=== PATIENT | female | born 1965 | race Two or more races ===

== ENCOUNTER 2019-03-03 03:22 | Emergency (ER) | payer SELFPAY ==
[~2019-03-03] VITALS: Ht 167.6 cm; Wt 81.6 kg
[~2019-03-03 03:22] MED LIST: ASPI-231 PO; DORZ1SOL2 OP; DORZ2SOL18 OP; INSLANTI SC; METF-370; METF-370 PO; PREDSUS OP; SIMV40TA96 PO; [UNRECOGNIZED DRUG - CODE] OP
[2019-03-03 07:21] LABS: Basophils # (auto) 0.1 uL; Basophils % (auto) 1.1 % (0.0-2.0); Eosinophils # (auto) 0.1 uL; Eosinophils % (auto) 2.3 % (0.0-7.0); Hematocrit 32.8 % (36.0-46.0); Hemoglobin 10.8 g/dL (12.2-16.2); Lymphocytes # (auto) 1.2 uL; Lymphocytes % (auto) 20.1 % (10.0-50.0); Mean Corpuscular Hemoglobin 30.5 pg (28.0-32.0); Mean Corpuscular Hgb Conc. 33.1 g/dL (32.0-36.0); Mean Corpuscular Volume 92.3 fL (80.0-100.0); Monocytes # (auto) 0.8 uL; Monocytes % (auto) 12.8 % (0.0-12.0); Neutrophils # (auto) 3.9 uL; Neutrophils % (auto) 63.7 % (37.0-80.0); Platelet Count (auto) 198 10^3/uL (140-450); Red Blood Cells 3.55 10^6/uL (4.0-5.20); Red Cell Distribution Width 14.9 % (11.8-14.3); White Blood Cell 6.2 10^3/uL (4.4-10.8)
[2019-03-03 07:38] LABS: Albumin 2.9 g/dL (3.4-5.0); BUN/Creatinine Ratio 9.6; Calcium 8.3 mg/dL (8.5-10.1); Potassium 4.5 mmol/L (3.5-5.1)
[2019-03-03 07:41] LABS: Bilirubin, Total 0.5 mg/dL (0.2-1.0); Total Protein 6.7 g/dL (6.4-8.2)
[2019-03-03 07:45] LABS: INR 1.01 (0.9-1.15); Partial Thromboplastin Time 26.8 sec (23.64-32.05)
[2019-03-03 10:04] VITALS: BP 158/73
== END 2019-03-03 11:41 | disposition home or self-care (01) ==
LOC: EDBD 03:22 → ER 03:29
DX: I12.0 Hypertensive chronic kidney disease with stage 5 chronic kidney disease or end stage renal disease (principal); E11.22 Type 2 diabetes mellitus with diabetic chronic kidney disease; N18.6 End stage renal disease; E78.5 Hyperlipidemia, unspecified; E46 Unspecified protein-calorie malnutrition; Z99.2 Dependence on renal dialysis; Z90.49 Acquired absence of other specified parts of digestive tract
CPT/HCPCS: 36415; 71045; 80053; 85025; 85610; 85730

== ENCOUNTER 2019-05-20 08:16 | Inpatient (IN) | payer MEDICAID ==
[~2019-05-20] VITALS: Ht 170.2 cm; Wt 66.5 kg
[2019-05-20 09:07] LABS: Basophils # (auto) 0 uL; Basophils % (auto) 0.6 % (0.0-2.0); Eosinophils # (auto) 0 uL; Eosinophils % (auto) 0.3 % (0.0-7.0); Hematocrit 34.6 % (36.0-46.0); Hemoglobin 11.3 g/dL (12.2-16.2); Lymphocytes # (auto) 0.5 uL; Lymphocytes % (auto) 9.2 % (10.0-50.0); Mean Corpuscular Hemoglobin 31.3 pg (28.0-32.0); Mean Corpuscular Hgb Conc. 32.8 g/dL (32.0-36.0); Mean Corpuscular Volume 95.4 fL (80.0-100.0); Monocytes # (auto) 0.2 uL; Neutrophils # (auto) 4.2 uL; Neutrophils % (auto) 84.9 % (37.0-80.0); Platelet Count (auto) 194 10^3/uL (140-450); Red Blood Cells 3.63 10^6/uL (4.0-5.20); Red Cell Distribution Width 14.4 % (11.8-14.3); White Blood Cell 4.9 10^3/uL (4.4-10.8)
[2019-05-20 09:37] LABS: Anion Gap 11 (5-15); Blood Urea Nitrogen 32 mg/dL (7-18); Carbon Dioxide 25 mmol/L (21-32); Chloride 101 mmol/L (98-107); Glucose 155 mg/dL (74-106); Potassium 5.2 mmol/L (3.5-5.1); Sodium 137 mmol/L (136-145)
[2019-05-20 09:38] LABS: Alanine Aminotransferase 32 U/L (13-56); Albumin 3.2 g/dL (3.4-5.0); Aspartate Aminotransferase 28 U/L (15-37); BUN/Creatinine Ratio 6.6; GFR African American 12 mL/min; GFR Non-African American 10 mL/min; Magnesium 2.8 mg/dL (1.6-2.6)
[2019-05-20 09:43] LABS: Alkaline Phosphatase 218 U/L (45-117); Bilirubin, Total 0.5 mg/dL (0.2-1.0); Total Protein 7.4 g/dL (6.4-8.2)
[2019-05-20] MEDS ORDERED: ALBUTEROL SULF 2.5 MG/0.5ML(0.5%) NEB SOLN NEB STA (11:39)
[2019-05-20] MEDS ORDERED: InsuLIN REG 1unit/0.01ml Soln (100units/ml) IV ONE (11:45)
[2019-05-20] MEDS ORDERED: DEXTROSE (50%) 50ML SYRG IV ONE (11:45)
[2019-05-20] MEDS ORDERED: CALCIUM GLUC 4.65meq/50ml D5AE 50 ML IV ONE (11:45)
[2019-05-20] MEDS ORDERED: SODIUM BICARBONATE 8.4% INJ 50ML SYRINGE IV ONE (11:45)
[2019-05-20] MEDS ORDERED: SODIUM ZIRCONIUM CYCL 10 GM PAK PO ONE (11:45)
[2019-05-20 11:50] LABS: Urine Bacteria FEW /hpf (None Seen); Urine Blood 1+ /uL (Negative); Urine Hyaline Cast FEW /lpf (0 - 2); Urine Mucus FEW (None Seen); Urine Specific Gravity 1.034 (1.001-1.035); Urine WBC 13 /hpf (0 - 5)
[2019-05-20] MEDS ORDERED: MORPHINE SULF INJ 2 MG/ML SYRINGE 1ML IV PRN ×2 (12:30)
[2019-05-20] MEDS ORDERED: NITROGLYCERIN 0.4 MG SL TAB SL PRN (12:30)
[2019-05-20] MEDS ORDERED: ONDANSETRON HCL 4 MG/2 ML VIAL IV PRN (12:30)
[2019-05-20] MEDS ORDERED: ACETAMINOPHEN 500 MG TAB PO PRN (12:30)
[2019-05-20] MEDS ORDERED: HYDROcodone-ACET 5/325MG TAB PO PRN (12:30)
[2019-05-20] MEDS ORDERED: DEXTROSE (50%) 50ML SYRG IV PRN (12:45)
[2019-05-20] MEDS ORDERED: FAMOTIDINE 20 MG TAB PO ONE (13:15)
[2019-05-20] MEDS ORDERED: CARVEDILOL 3.125 MG TAB PO ONE (13:15)
[2019-05-20] MEDS ORDERED: BENAZEPRIL HCL 10 MG TAB PO ONE (13:15)
[2019-05-20] MEDS ORDERED: ASPirin-EC 81 mg tab PO ONE (13:15)
--- NOTE | 2019-05-20 14:30 | NUR ---
Telemetry admit from ER: LAURA XIAO admitted to Telemetry unit after SBAR received. Patient oriented to KELLY ART, RN primary RN, unit, room, bed, and unit policies regarding patient care and visiting hours. Patient is mexican speaking only, and was A&O x2 on admission, patient will need frequent reorientation. Patient now on continuous telemetry monitoring, tele box # 34 and telemetry reading on arrival to unit is SR 75bpm. Patient placed on bedside oxygen, weighed by bedscale and encouraged to call if they need something.
--- NOTE | 2019-05-20 15:15 | NUR ---
Family provided history for patient. Patient is Bahraini speaking only.
[2019-05-20 15:59] VITALS: BP 155/77
--- NOTE | 2019-05-20 16:04 | NUR ---
Attempted to place patient in gown, and perform skin assessment. Patient denied changing and denied full skin assessment at this time.
[2019-05-20 17:00] VITALS: BP 142/68
[2019-05-20] MEDS: ACCU-CHEK COMFORT CURVE STRIP VI SCH ×2 (17:00→21:55)
--- NOTE | 2019-05-20 17:24 | NUR ---
Dr. Hylton called for an update on patient. States patient was discharged from [place] yesterday. Stated he will call back tomorrow for another update.
--- NOTE | 2019-05-20 18:03 | NUR ---
Asked pt if she would like to ambulate, so this nurse could assess gait. Patient denied at this time.
[2019-05-20] MEDS: InsuLIN REG 1unit/0.01ml Soln (100units/ml) SC SCH ×2 (18:24→22:13)
--- NOTE | 2019-05-20 19:52 | NUR ---
MRSA swab collected and sent
--- NOTE | 2019-05-20 19:53 | NUR ---
Care endorsed to [facility] nurse Luanne. Patient is laying in bed, no S/S of distress or pain at this time.
--- NOTE | 2019-05-20 19:55 | NUR ---
Opening Shift Note Assumed care of patient, awake and alert, oriented x 3, reoriented to time. Patient on oxygen at 4L via NC with even and unlabored respirations, no S/S of distress or SOB. IV to right AC intact and patent. AV fistula to left upper arm. Patient is able to turn independently in bed. Bed low locked position with side rails up x and call light within reach, bed alarm on. Instructed on POC and to call for assist PRN, will continue to monitor for changes Q1hr and PRN.
[2019-05-20 20:00] VITALS: BP 144/70
[2019-05-20] MEDS: CARVEDILOL 3.125 MG TAB PO SCH (21:55)
[2019-05-20] MEDS: ZOCOR PO SCH (21:55)
[2019-05-20 22:00] VITALS: BP 144/70
[2019-05-21 05:00] VITALS: BP 152/76
--- NOTE | 2019-05-21 06:00 | NUR ---
Received call from Dialysis nurse will be coming in for dialysis in the A.M.
[2019-05-21] MEDS: ACCU-CHEK COMFORT CURVE STRIP VI SCH ×4 (06:42→21:42)
[2019-05-21] MEDS: InsuLIN REG 1unit/0.01ml Soln (100units/ml) SC SCH ×4 (06:43→21:42)
--- NOTE | 2019-05-21 07:00 | NUR ---
Closing Note patient resting in bed with oxygen on at 4L via NC, even and unlabored respirations, no s/s of distress. Bed low locked position with side rails up x 2 and call light within reach, bed alarm on. Endorsed care to day shift RN.
[2019-05-21 07:03] LABS: Basophils # (auto) 0.1 uL; Basophils % (auto) 1.3 % (0.0-2.0); Eosinophils # (auto) 0.1 uL; Eosinophils % (auto) 2.6 % (0.0-7.0); Hematocrit 32.1 % (36.0-46.0); Hemoglobin 10.6 g/dL (12.2-16.2); Lymphocytes # (auto) 1.1 uL; Lymphocytes % (auto) 23.4 % (10.0-50.0); Mean Corpuscular Hemoglobin 31.6 pg (28.0-32.0); Mean Corpuscular Hgb Conc. 32.9 g/dL (32.0-36.0); Monocytes # (auto) 0.6 uL; Monocytes % (auto) 13.1 % (0.0-12.0); Neutrophils # (auto) 2.8 uL; Neutrophils % (auto) 59.6 % (37.0-80.0); Nucleated Red Blood Cells % 0.1 %; Platelet Count (auto) 187 10^3/uL (140-450); Red Blood Cells 3.35 10^6/uL (4.0-5.20); Red Cell Distribution Width 14.2 % (11.8-14.3); White Blood Cell 4.8 10^3/uL (4.4-10.8)
[2019-05-21 07:14] LABS: Calcium 8.1 mg/dL (8.5-10.1); Potassium 5.1 mmol/L (3.5-5.1)
[2019-05-21 07:15] LABS: BUN/Creatinine Ratio 6.8
--- NOTE | 2019-05-21 07:55 | NUR ---
Opening Note Assumed pt care from [facility] nurse. PT is a/ox4 with no s/s of distress or SOB. Pt is currently laying in bed with no complaints. Discussed POC with pt and the possibility of dialysis today; pt verbalized understanding. Pt instructed to call if she needs any assistance due to her vision impairment; pt verbalized understanding. Safety measures maintained with call light within reach, bed in lowest position and side rails up. Will continue to monitor for changes q1hr and prn.
--- NOTE | 2019-05-21 08:10 | NUR ---
Dialysis Nurse Called Will be into see pt between [id number]. Informed pt of dialysis treatment. Will continue to monitor.
[2019-05-21 09:00] VITALS: BP 157/71
[2019-05-21] MEDS: CARVEDILOL 3.125 MG TAB PO SCH ×3 (09:48→21:42)
[2019-05-21] MEDS: ASPirin-EC 81 mg tab PO SCH (09:53)
[2019-05-21] MEDS ORDERED: BENAZEPRIL HCL 10 MG TAB PO SCH (10:00)
[2019-05-21] MEDS ORDERED: FAMOTIDINE 20 MG TAB PO SCH (10:00)
--- NOTE | 2019-05-21 10:31 | NUR ---
Pt C/O of Chest Pain Pt called via call light and reported chest pain to another nurse. Assessed pt; limited understanding of pain due to language barrier but pt pointed to pain located in her stomach area. Assessed pt; she stated that her pain is a 6/10. An EKG was done which showed a normal EKG. After performing the EKG, encouraging deep breaths and sitting the pt up, pt stated that her pain is about a 4/10. Encouraged deep breaths. Will continue to monitor. Addendum: 05/21/19 at 1101 by CELSA ART RN RN Pt states that she is no longer in any pain. Will continue to assess and monitor.
--- NOTE | 2019-05-21 10:39 | NUR ---
Spoke to Dr Mckeon D/C the pt's lotensin due to pt's poor kidney function. Discussed need to place martinez catheter in pt due to minimal urine output. Will implement and continue to monitor.
[2019-05-21] MEDS ORDERED: FUROSEMIDE 40 MG/4 ML VIAL IV ONE (10:45)
--- NOTE | 2019-05-21 11:01 | NUR ---
Dialysis Nurse at Bedside
[2019-05-21] MEDS ORDERED: SODIUM CHL 0.9% 1000 ML BAG XX ONE (11:15)
[2019-05-21 13:00] VITALS: BP 181/81
--- NOTE | 2019-05-21 14:18 | NUR ---
Elevated BP Post Dialysis BP of 181/81 with a HR of 71. Provided pt with daily BP medications. Will continue to monitor. Dialysis nurse reported 2.5L taken off after treatment. Addendum: 05/21/19 at 1510 by CELSA ART RN RN Rechecked BP Now 160/72 with a HR of 76. Pt is still asymptomatic with no complaints. Will continue to monitor and recheck in 1 HR. Addendum: 05/21/19 at 1751 by CELSA ART RN RN Current BP is 166/80 Will continue to monitor.
[2019-05-21 17:00] VITALS: BP 166/80
--- NOTE | 2019-05-21 18:05 | NUR ---
Elevated BP Continues Post Dialysis Latest BP is 166/80. Jaleel Hospitalist. Cynthia buchanan back, orders for PRN Labetalol Q4 10mg SBP>160. Will implement orders. Addendum: 05/21/19 at 1848 by CELSA ART RN RN Reassess BP 161/72 HR of 71. Will continue to monitor and pass to JALIL bean
[2019-05-21] MEDS ORDERED: LABETALOL HCL 5 MG/ML ML 20ML VIAL IV PRN (18:15)
--- NOTE | 2019-05-21 19:40 | NUR ---
Opening Shift Note Assumed care of patient, awake and alert. No S/S of distress/SOB or pain. Instructed on POC and to call for assist PRN. Bed in lowest locked position, call light within reach, side rails up x2, fall precautions in place. Will continue to monitor for changes Q1hr and PRN.
[2019-05-21] MEDS: ZOCOR PO SCH (21:41)
[2019-05-21 22:00] VITALS: BP 160/70
[2019-05-22 05:00] VITALS: BP 160/78
[2019-05-22] MEDS: ACCU-CHEK COMFORT CURVE STRIP VI SCH ×3 (06:42→17:01)
[2019-05-22] MEDS: InsuLIN REG 1unit/0.01ml Soln (100units/ml) SC SCH ×3 (06:42→17:02)
[2019-05-22 06:49] LABS: BUN/Creatinine Ratio 5.7; Potassium 4.7 mmol/L (3.5-5.1)
[2019-05-22] MEDS: ASPirin-EC 81 mg tab PO SCH (08:42)
[2019-05-22] MEDS: CARVEDILOL 3.125 MG TAB PO SCH (08:43)
[2019-05-22 08:46] VITALS: BP 161/72
[2019-05-22] MEDS ORDERED: NIFEdipine ER 30 MG TAB PO SCH (10:00)
[2019-05-22] MEDS ORDERED: NIFE30TA76 PO (10:26)
[2019-05-22 13:00] VITALS: BP 160/71
--- NOTE | 2019-05-22 14:39 | NUR ---
D/C Planning Per consult for oxygen 3 l/min. Contacted [facility] Ph:) Fax:) faxed medical records requesting for oxygen to be deliver to bedside. Per Ok from [facility] referral has been received and portable oxygen will be deliver to bedside between 13:00-15:00 and concentrate oxygen will be deliver to Pt home. Advised MD Dr. Mckeon. Informed NICK Radford. Addendum: 05/22/19 at 1444 by ARCADIO MELARA Amended: Links added.
[2019-05-22 15:28] VITALS: BP 145/76
--- NOTE | 2019-05-22 17:20 | NUR ---
Discharge instructions given as ordered. Encourage to follow up with PMD as instructed. All questions and concerns addressed. Patient verbalized understanding. Medication reconciliation form completed and copy given to patient.. IV removed with catheter intact, pressure dressing applied, . Telemetry unit returned to ICU. Patient taken to vehicle via wheelchair with all personal belongings, accompanied by staff and family member. No distress noted at time of departure.
== END 2019-05-22 17:20 | disposition home or self-care (01) | DRG 194 ==
LOC: EDBD 08:16 → ER 08:18 → TELE 08:19 → TELE-CENTR 14:43
PROVIDERS: ADMIT Nurse Practitioner Acute Care; ATTEND Internal Medicine
PROC: 5A1D70Z Performance of Urinary Filtration, Intermittent, Less than 6 Hours Per Day (ICD-10-PCS; principal; 2019-05-21)
DX: I13.2 Hypertensive heart and chronic kidney disease with heart failure and with stage 5 chronic kidney disease, or end stage renal disease (principal); J96.01 Acute respiratory failure with hypoxia; G93.41 Metabolic encephalopathy; E46 Unspecified protein-calorie malnutrition; N18.6 End stage renal disease; E87.5 Hyperkalemia; E78.5 Hyperlipidemia, unspecified; E11.21 Type 2 diabetes mellitus with diabetic nephropathy; E11.22 Type 2 diabetes mellitus with diabetic chronic kidney disease; E11.319 Type 2 diabetes mellitus with unspecified diabetic retinopathy without macular edema; E11.65 Type 2 diabetes mellitus with hyperglycemia; I50.43 Acute on chronic combined systolic (congestive) and diastolic (congestive) heart failure; D63.8 Anemia in other chronic diseases classified elsewhere; H54.8 Legal blindness, as defined in USA; Z99.2 Dependence on renal dialysis; Z79.4 Long term (current) use of insulin; Z68.23 Body mass index [BMI] 23.0-23.9, adult; Z90.49 Acquired absence of other specified parts of digestive tract; Z79.899 Other long term (current) drug therapy
CPT/HCPCS: 36415; 36600; 70450; 71045; 80048; 80053; 81001; 82805; 82962; 83036; 83605; 83735; 83880; 84132; 84484; 84550; 85025; 87040; 87081; 90935; 93005; 93306; 94640; 94761; 96365; 96375; 99291; G0378; J0610; J1815

== ENCOUNTER 2019-06-13 06:07 | Inpatient (IN) | payer MEDICAID ==
[~2019-06-13] VITALS: Ht 154.9 cm; Wt 64.7 kg
[~2019-06-13 06:07] MED LIST changes: +NIFE30TA76 PO
[2019-06-13] MEDS ORDERED: ASPirin 81 mg TAB PO ONE (07:15)
[2019-06-13 07:21] LABS: Basophils # (auto) 0 uL; Basophils % (auto) 0.6 % (0.0-2.0); Eosinophils # (auto) 0.1 uL; Eosinophils % (auto) 1.7 % (0.0-7.0); Hematocrit 31.3 % (36.0-46.0); Hemoglobin 10.4 g/dL (12.2-16.2); Lymphocytes # (auto) 0.8 uL; Lymphocytes % (auto) 10.1 % (10.0-50.0); Mean Corpuscular Hemoglobin 31.6 pg (28.0-32.0); Mean Corpuscular Hgb Conc. 33.1 g/dL (32.0-36.0); Mean Corpuscular Volume 95.6 fL (80.0-100.0); Monocytes # (auto) 0.7 uL; Monocytes % (auto) 9.4 % (0.0-12.0); Neutrophils # (auto) 6.1 uL; Neutrophils % (auto) 78.2 % (37.0-80.0); Nucleated Red Blood Cells % 0.1 %; Platelet Count (auto) 239 10^3/uL (140-450); Red Blood Cells 3.27 10^6/uL (4.0-5.20); Red Cell Distribution Width 14.9 % (11.8-14.3); White Blood Cell 7.8 10^3/uL (4.4-10.8)
[2019-06-13 07:41] LABS: Alanine Aminotransferase 41 U/L (13-56); Albumin 2.8 g/dL (3.4-5.0); Anion Gap 8 (5-15); Aspartate Aminotransferase 31 U/L (15-37); BUN/Creatinine Ratio 8.9; Blood Urea Nitrogen 50 mg/dL (7-18); Calcium 7.8 mg/dL (8.5-10.1); Carbon Dioxide 30 mmol/L (21-32); Chloride 96 mmol/L (98-107); GFR African American 10 mL/min; GFR Non-African American 8 mL/min; Glucose 116 mg/dL (74-106); Magnesium 3.1 mg/dL (1.6-2.6); Potassium 4.5 mmol/L (3.5-5.1); Sodium 134 mmol/L (136-145)
[2019-06-13 07:46] LABS: Alkaline Phosphatase 336 U/L (45-117); Bilirubin, Total 0.7 mg/dL (0.2-1.0); Total Protein 7.6 g/dL (6.4-8.2)
[2019-06-13] MEDS ORDERED: PROMETHAZINE HCL 25 MG/ML 1ML IV PRN (08:30)
[2019-06-13] MEDS ORDERED: MORPHINE SULF INJ 2 MG/ML SYRINGE 1ML IV PRN (08:30)
[2019-06-13] MEDS ORDERED: DEXTROSE (50%) 50ML SYRG IV PRN (08:30)
[2019-06-13] MEDS ORDERED: NITROGLYCERIN 0.4 MG SL TAB SL PRN (08:30)
[2019-06-13] MEDS ORDERED: LACTULOSE 20Gm/30ML SOLN PO PRN (08:30)
[2019-06-13] MEDS: NIFEdipine ER 30 MG TAB PO SCH (09:25)
[2019-06-13] MEDS: ASPirin 81 mg TAB PO SCH (09:25)
[2019-06-13] MEDS: FUROSEMIDE 40 MG/4 ML VIAL IV SCH (09:25)
[2019-06-13] MEDS: ENOXAPARIN SOD 30 MG/0.3 ML SYRINGE SC SCH (09:26)
[2019-06-13] MEDS: NITROGLYCERIN 0.2MG/HR TOPICAL PATCH TD SCH (09:26)
[2019-06-13] MEDS: CARVEDILOL 3.125 MG TAB PO SCH ×2 (09:26→22:00)
[2019-06-13] MEDS ORDERED: LEVOFLOXACIN 250 MG TAB PO ONE (10:45)
[2019-06-13] MEDS ORDERED: IOHEXOL 350 MG/ML 100ML IJ ONE (10:49)
[2019-06-13] MEDS: InsuLIN REG 1unit/0.01ml Soln (100units/ml) SC SCH ×3 (11:26→22:00)
[2019-06-13] MEDS: ACCU-CHEK COMFORT CURVE STRIP VI SCH ×3 (11:26→22:00)
[2019-06-13] MEDS ORDERED: prednisoLONE ACETATE 1% OPTH SUSP 5ML ONE (14:25)
[2019-06-13] MEDS: CYCLOPENTOLATE HCL 1% OPTH(EYE) SOL 2ML OP SCH ×2 (14:41→22:51)
[2019-06-13] MEDS: DORZOLAM-TIMOLOL(2/0.5%) OPTH(EYE) SOLN 10ML OP SCH ×2 (14:41→22:54)
[2019-06-13] MEDS: prednisoLONE ACETATE 1% OPTH SUSP 5ML OP SCH ×2 (14:41→22:55)
[2019-06-13] MEDS: traMADol HCL 50 MG TAB PO PRN ×2 (15:56→23:49)
[2019-06-13 20:15] VITALS: BP 120/58
--- NOTE | 2019-06-13 20:15 | NUR ---
Telemetry admit from ER TAVARES REEDLAURA admitted to Telemetry unit after SBAR received. Patient oriented to Luanne Lawrence RN primary RN, unit, room, bed, and unit policies regarding patient care and visiting hours. Patient now on continuous telemetry monitoring, tele box #58 and telemetry reading on arrival to unit is . Patient placed on bedside oxygen, weighed by bedscale and encouraged to call if they need something. All questions and concerns addressed, patient verbalized understanding. Note: patient alert and oriented x 4, follows direction. patient is citizen of [place] speaking. On oxygen at 4L via [place] with even and unlabored respirations, no s/s of distress. Patient turns in bed independently. AV fistula left upper arm, dressing CDI with positive brill and bruit. Bed low locked position with side rails up x 2 and call light within reach, bed alarm on. Instructed on POC and to call for assistance PRN
[2019-06-13] MEDS: ACETAMINOPHEN 500 MG TAB PO PRN (20:48)
[2019-06-13 22:00] VITALS: BP 120/58
[2019-06-13] MEDS: INSULIN LANTUS (GLARGINE) 1 /0.01ml (100units/ml) SC SCH (22:00)
[2019-06-13] MEDS: ATORVASTATIN 20 MG TAB PO SCH (22:50)
--- NOTE | 2019-06-13 23:00 | NUR ---
to bring in list of home medications
[2019-06-14 05:00] VITALS: BP 137/64
[2019-06-14] MEDS: DORZOLAM-TIMOLOL(2/0.5%) OPTH(EYE) SOLN 10ML OP SCH ×3 (05:19→22:27)
[2019-06-14] MEDS: CYCLOPENTOLATE HCL 1% OPTH(EYE) SOL 2ML OP SCH ×3 (05:19→22:27)
[2019-06-14] MEDS: prednisoLONE ACETATE 1% OPTH SUSP 5ML OP SCH ×3 (05:20→22:26)
[2019-06-14 06:24] LABS: Basophils # (auto) 0 uL; Basophils % (auto) 0.3 % (0.0-2.0); Eosinophils # (auto) 0.1 uL; Eosinophils % (auto) 1.1 % (0.0-7.0); Hematocrit 30.6 % (36.0-46.0); Hemoglobin 10.2 g/dL (12.2-16.2); Lymphocytes # (auto) 0.5 uL; Lymphocytes % (auto) 5.5 % (10.0-50.0); Mean Corpuscular Hemoglobin 31.9 pg (28.0-32.0); Mean Corpuscular Hgb Conc. 33.3 g/dL (32.0-36.0); Mean Corpuscular Volume 95.6 fL (80.0-100.0); Monocytes # (auto) 0.6 uL; Monocytes % (auto) 6.8 % (0.0-12.0); Neutrophils # (auto) 7.7 uL; Neutrophils % (auto) 86.3 % (37.0-80.0); Platelet Count (auto) 215 10^3/uL (140-450); Red Cell Distribution Width 15.1 % (11.8-14.3); White Blood Cell 8.9 10^3/uL (4.4-10.8)
[2019-06-14 06:44] LABS: Albumin 2.8 g/dL (3.4-5.0); Calcium 7.9 mg/dL (8.5-10.1); Magnesium 2.7 mg/dL (1.6-2.6)
[2019-06-14 06:47] LABS: BUN/Creatinine Ratio 7.1
[2019-06-14] MEDS: InsuLIN REG 1unit/0.01ml Soln (100units/ml) SC SCH ×4 (07:00→22:00)
[2019-06-14] MEDS: INSULIN LANTUS (GLARGINE) 1 /0.01ml (100units/ml) SC SCH ×2 (07:00→22:00)
[2019-06-14] MEDS: ACCU-CHEK COMFORT CURVE STRIP VI SCH ×4 (07:03→22:33)
--- NOTE | 2019-06-14 07:10 | NUR ---
Closing Note patient resting in bed with even and unlabored respirations, no s/s of distress. Bed low locked position with side rails up x 2 and call light within reach bed alarm on. Endorsed care to day shift RN. Addendum: 06/14/19 at 0801 by Luanne Lawrence RN RN on oxygen at 2L via NC
[2019-06-14 07:14] LABS: Bilirubin, Total 0.6 mg/dL (0.2-1.0); Total Protein 7.3 g/dL (6.4-8.2)
--- NOTE | 2019-06-14 07:30 | NUR ---
MRSA swab sent to lab
--- NOTE | 2019-06-14 07:33 | NUR ---
Opening Shift Note Assumed care of patient, awake and alert. No S/S of distress/SOB. Pt rated pain at a 6/10 in her bilateral lower extremities. Bed in lowest and locked position with side rails up x2 and call light within reach. Instructed on POC and to call for assist PRN, will continue to monitor for changes Q1hr and PRN.
[2019-06-14] MEDS ORDERED: ADENOSINE 55 MG in GIVE UN-DILUTED 0 ML IV STA (08:18)
--- NOTE | 2019-06-14 08:30 | NUR ---
PER MD ORDERS, EKG INITIATED AND PLACED IN CHART.
[2019-06-14 08:33] VITALS: BP 144/65
[2019-06-14] MEDS: traMADol HCL 50 MG TAB PO PRN (09:21)
[2019-06-14] MEDS ORDERED: LEVOFLOXACIN 250 MG TAB PO SCH ×2 (10:00→16:45)
--- NOTE | 2019-06-14 10:30 | NUR ---
PER STRESS RN, HOLD MEDICATIONS UNTIL AFTER STRESS TEST COMPLETE.
--- NOTE | 2019-06-14 11:10 | NUR ---
PATIENT TAKEN TO STRESS LAB.
[2019-06-14 12:00] VITALS: BP 150/67
[2019-06-14] MEDS: NITROGLYCERIN 0.2MG/HR TOPICAL PATCH TD SCH (12:27)
[2019-06-14] MEDS: CARVEDILOL 3.125 MG TAB PO SCH ×2 (12:28→22:33)
[2019-06-14] MEDS: ASPirin 81 mg TAB PO SCH (12:42)
[2019-06-14] MEDS: NIFEdipine ER 30 MG TAB PO SCH (12:42)
[2019-06-14] MEDS: ENOXAPARIN SOD 30 MG/0.3 ML SYRINGE SC SCH (12:43)
[2019-06-14] MEDS: FUROSEMIDE 40 MG/4 ML VIAL IV SCH (12:43)
[2019-06-14 17:00] VITALS: BP 103/47
--- NOTE | 2019-06-14 17:10 | NUR ---
Discharge planning per SS consult, patient is requesting home health and or a mobile homes repairer for ADL's a home. Referral faxed to [facility] [phone] for approval and assistance. Placed a follow up call and left a message for the dependency case manager Kyle to advised and return my call. As of 06.14.19 17:11pm, I have not received a call back. Home health is pending as this SS consult was a request by patient and no ordered home health to meet clinical criteria.
--- NOTE | 2019-06-14 19:40 | NUR ---
Opening Shift Note Assumed care of patient, awake and alert oriented x4. No S/S of distress/SOB noted. Bed is in lowest locked position with bed rails up times 2 and call light is within reach of the patient. Instructed on POC and to call for assist PRN.
[2019-06-14 22:00] VITALS: BP 108/50
[2019-06-14] MEDS: ATORVASTATIN 20 MG TAB PO SCH (22:29)
[2019-06-15] MEDS: traMADol HCL 50 MG TAB PO PRN ×2 (01:55→13:18)
[2019-06-15 05:33] VITALS: BP 99/50
--- NOTE | 2019-06-15 05:43 | NUR ---
Bed bath given: Gave patient a bed bath and changed gown and leads on patient. Patient tolerated well and is resting in bed with breaths even and unlabored. No S/S of distress SOB noted.
[2019-06-15] MEDS: INSULIN LANTUS (GLARGINE) 1 /0.01ml (100units/ml) SC SCH (06:00)
[2019-06-15] MEDS: InsuLIN REG 1unit/0.01ml Soln (100units/ml) SC SCH ×3 (06:00→17:47)
[2019-06-15] MEDS: ACCU-CHEK COMFORT CURVE STRIP VI SCH ×3 (06:01→17:47)
[2019-06-15] MEDS: CYCLOPENTOLATE HCL 1% OPTH(EYE) SOL 2ML OP SCH ×2 (06:13→14:47)
[2019-06-15] MEDS: prednisoLONE ACETATE 1% OPTH SUSP 5ML OP SCH ×2 (06:13→14:46)
[2019-06-15] MEDS: DORZOLAM-TIMOLOL(2/0.5%) OPTH(EYE) SOLN 10ML OP SCH ×2 (06:14→14:47)
[2019-06-15 06:31] LABS: BUN/Creatinine Ratio 8.6; Calcium 7.5 mg/dL (8.5-10.1); Potassium 4.8 mmol/L (3.5-5.1)
--- NOTE | 2019-06-15 06:40 | NUR ---
PATIENT DID NOT PRODUCE A LOT OF URINE: PATIENT DID NO PRODUCE A LOT OF URINE VIA HOBSON CATHETER. ASSESSED HOBSON FOR PLACEMENT AND PALPATED PATIENTS BLADDER. PATIENTS BLADDER IS NOT DISTENDED AND PATIENT FEELS NO PAIN OR URGE TO URINATE. STATES THAT HER THIGHS ARE WHAT IS BOTHERING HER. PATIENT IS DUE FOR DIALYSIS TODAY.
[2019-06-15] MEDS ORDERED: SODIUM CHL 0.9% 1000 ML BAG XX ONE (07:00)
--- NOTE | 2019-06-15 07:30 | NUR ---
Opening Shift Note Assumed care of patient, awake and alert. No S/S of distress/SOB. Pt denies having any pain at this time. Bed in lowest and locked position with side rails up x2 and call light within reach. Instructed on POC and to call for assist PRN, will continue to monitor for changes Q1hr and PRN.
--- NOTE | 2019-06-15 09:00 | NUR ---
HEPARIN PULLED FROM [employer]. ROPE MAKER RECEIVED HEPARIN AND TO BE ADMINISTERED BY ROPE MAKER.
--- NOTE | 2019-06-15 09:00 | NUR ---
METAL DRILL PRESS OPERATOR AT PATIENT BEDSIDE.
[2019-06-15 09:12] VITALS: BP 113/58
[2019-06-15] MEDS: NITROGLYCERIN 0.2MG/HR TOPICAL PATCH TD SCH (10:00)
[2019-06-15] MEDS: CARVEDILOL 3.125 MG TAB PO SCH (10:00)
[2019-06-15] MEDS: NIFEdipine ER 30 MG TAB PO SCH (10:00)
[2019-06-15] MEDS: FUROSEMIDE 40 MG/4 ML VIAL IV SCH (10:00)
--- NOTE | 2019-06-15 10:55 | NUR ---
PAGED DR. TELLEZ REGARDING STRESS TEST RESULTS AND DISCHARGE CLEARANCE, PER DR. CAMERON ORDERS.
--- NOTE | 2019-06-15 11:14 | NUR ---
SPOKE TO . ACCORDING TO MD THE STRESS RESULTS HAVE BEEN READ. DR. CAMERON NOTIFIED AND AWARE.
--- NOTE | 2019-06-15 11:16 | NUR ---
SPOKE TO DR. CAMERON. ACCORDING TO THE MD, GIVE THE PATIENT EPOGEN AFTER DIALYSIS DUE TO THE PATIENT WILL BE DISCHARGED AFTER DIALYSIS.
--- NOTE | 2019-06-15 11:30 | NUR ---
EPOGEN RECEIVED AND SPEED WINDER TO GIVE THE EPOGEN. Addendum: 06/15/19 at 1233 by SERGO SNYDER RN RN EPOGEN PULLED AND GIVEN TO SPEED WINDER.
[2019-06-15] MEDS ORDERED: EPOETIN ALFA 4,000 UNIT/ML VL SC ONE (12:00)
[2019-06-15] MEDS: ASPirin 81 mg TAB PO SCH (13:18)
[2019-06-15] MEDS: ENOXAPARIN SOD 30 MG/0.3 ML SYRINGE SC SCH (13:19)
[2019-06-15 13:32] VITALS: BP 109/57
[2019-06-15] MEDS ORDERED: FURO40TA4 PO (13:47)
[2019-06-15] MEDS ORDERED: SEVE800T8 PO (13:49)
[2019-06-15] MEDS ORDERED: AMLO5TAB15 PO (13:49)
[2019-06-15] MEDS ORDERED: INSLISPI SC (13:49)
[2019-06-15] MEDS ORDERED: INSLANTI SC (13:49)
[2019-06-15] MEDS ORDERED: LISI-646 PO (13:49)
--- NOTE | 2019-06-15 14:30 | NUR ---
SPOKE TO THE PATIENTS DAUGHTER, ANG, REGARDING PATIENTS HOME SITUATION. THE DAUGHTER VERBALLY CLARIFIED THE PATIENTS HOME MEDICATIONS AND THAT THE PATIENT USES 2L OF OXYGEN AT HOME. THE DAUGHTER ALSO STATED THAT THE PATIENT IS NORMALLY ABLE TO WALK AROUND "A LITTLE BIT" AT HOME, BUT SINCE THE PAIN IN HER LEGS, THE PATIENT DOES NOT AMBULATE MUCH DUE TO THE PAIN. THE DAUGHTER ALSO STATED THAT THE PATIENT LIVES WITH HER AND THAT SHE HELPS THE PATIENT AT HOME.
--- NOTE | 2019-06-15 14:46 | NUR ---
Pt reports 03/09 pain level to bilat LE's going from hips down towards knees. Pt was able to gait x 15ft from bed to doorway and back to bed with modA using a FWW. Pt is going to be needing a FWW for home use when D/C'd to home Addendum: 06/15/19 at 1448 by Nataly Robison PT Amended: Links added.
[2019-06-15] MEDS: ACETAMINOPHEN 500 MG TAB PO PRN (14:55)
--- NOTE | 2019-06-15 14:59 | NUR ---
PATIENT REFUSING HOBSON CATHETER. PATIENT STATED "I DON'T NEED THE HOBSON BECAUSE I BARELY PEE AND IT IS HURTING ME". THE PATIENT EDUCATED ON THE REASONING FOR THE HOBSON CATHETER AND THE IMPORTANCE OF USING THE HOBSON. PATIENT EDUCATED ON THE RISKS AND BENEFITS, PATIENT CONTINUES TO REFUSE. HOBSON CATHETER DC'D DUE TO PATIENTS REFUSAL, DONE WITH CLEAN TECHNIQUE FOLLOWING THE DEFLATION OF THE BALLOON. PATIENT TOLERATED WELL. CONTINUE CARE.
--- NOTE | 2019-06-15 16:17 | NUR ---
SPOKE TO DR. CAMERON AND NOTIFIED MD THAT THE PATIENT REFUSED THE HOBSON CATHETER BECAUSE IT WAS CAUSING PAIN. MD ALSO NOTIFIED THAT THE HOBSON CATHETER TUBING HAD BLOOD IN THE TUBING. MD AWARE AND NO NEW ORDERS RECEIVED AT THIS TIME.
--- NOTE | 2019-06-15 16:20 | NUR ---
SPOKE TO DR. CAMERON AND NOTIFIED THE MD ABOUT THE PATIENT'S ABILITY TO WALK AT HOME AND THAT THE PATIENT DOES HAVE 2L NC OF OXYGEN AT HOME. MD ALSO NOTIFIED ON THE HOME MEDICATIONS THAT THE DAUGHTER CLARIFIED. MD AWARE. NO NEW ORDERS RECEIVED AT THIS TIME.
--- NOTE | 2019-06-15 16:59 | NUR ---
CLARIFIED SOCIAL SERVICE CONSULT FOR PATIENTS REQUEST FOR HOME HEALTH WITH DR. CAMERON. ACCORDING TO THE MD THE PATIENT CAN BE DISCHARGED PRIOR TO HOME HEALTH BEING ARRANGED BECAUSE IT CAN BE COMPLETED OUT PATIENT. MATTIE ZUÑIGA TO BE CLARIFIED WITH SWATCH CHECKER.
--- NOTE | 2019-06-15 17:12 | NUR ---
SPOKE TO BORIS APPLIANCE SERVICE REPRESENTATIVE. ACCORDING TO APPLIANCE SERVICE REPRESENTATIVE, THE PATIENT CAN BE DISCHARGED BEFORE THE HOME HEALTH IS ARRANGED.
--- NOTE | 2019-06-15 18:00 | NUR ---
Spoke to pharmacy services representative and verified the eye drops in the patents casset are not POM and are provided by the hospital.
[2019-06-15 18:30] VITALS: BP 125/57
--- NOTE | 2019-06-15 19:00 | NUR ---
Discharge instructions given as ordered. Encourage to follow up with PMD as instructed. All questions and concerns addressed. Patient verbalized understanding. Medication reconciliation form completed and copy given to patient. Patients daughter verbalized that there are no Home medications held in Pharmacy. No needed vaccines. IV removed with catheter intact, pressure dressing applied. Telemetry unit returned to ICU. hemodialysis technician notified of quality assurance monitor chassis.
--- NOTE | 2019-06-15 19:30 | NUR ---
Patient taken to vehicle via wheelchair with home oxygen system applied and tolerating well. Pt left with all personal belongings, accompanied by staff and family member. No distress noted at time of departure.
[2019-06-16] MEDS ORDERED: LEVOFLOXACIN 250 MG TAB PO SCH (10:00)
== END 2019-06-15 19:00 | disposition home or self-care (01) | DRG 194 ==
LOC: EDBD 06:07 → ER 06:07 → TELE 06:08 → TELE-WESTW 20:10
PROVIDERS: ADMIT Internal Medicine; ATTEND Internal Medicine
PROC: 5A1D70Z Performance of Urinary Filtration, Intermittent, Less than 6 Hours Per Day (ICD-10-PCS; principal; 2019-06-13)
PROC: 5A1D70Z Performance of Urinary Filtration, Intermittent, Less than 6 Hours Per Day (ICD-10-PCS; 2019-06-15)
DX: I13.2 Hypertensive heart and chronic kidney disease with heart failure and with stage 5 chronic kidney disease, or end stage renal disease (principal); J96.00 Acute respiratory failure, unspecified whether with hypoxia or hypercapnia; J18.9 Pneumonia, unspecified organism; E44.0 Moderate protein-calorie malnutrition; E11.22 Type 2 diabetes mellitus with diabetic chronic kidney disease; N18.6 End stage renal disease; D63.1 Anemia in chronic kidney disease; E11.319 Type 2 diabetes mellitus with unspecified diabetic retinopathy without macular edema; E11.65 Type 2 diabetes mellitus with hyperglycemia; E78.5 Hyperlipidemia, unspecified; H54.8 Legal blindness, as defined in USA; I25.10 Atherosclerotic heart disease of native coronary artery without angina pectoris; I50.43 Acute on chronic combined systolic (congestive) and diastolic (congestive) heart failure; Z79.4 Long term (current) use of insulin; Z79.82 Long term (current) use of aspirin; Z79.899 Other long term (current) drug therapy; Z82.3 Family history of stroke; Z82.49 Family history of ischemic heart disease and other diseases of the circulatory system; Z83.3 Family history of diabetes mellitus; Z86.73 Personal history of transient ischemic attack (TIA), and cerebral infarction without residual deficits; Z99.2 Dependence on renal dialysis; Z90.49 Acquired absence of other specified parts of digestive tract; Z88.0 Allergy status to penicillin; Z68.27 Body mass index [BMI] 27.0-27.9, adult
CPT/HCPCS: 36415; 71045; 71275; 78452; 80048; 80053; 80061; 82550; 82962; 83036; 83735; 84484; 85025; 85379; 85652; 86141; 87081; 90935; 93005; 93017; 93926; 93970; 96365; 96375; 97116; 97530; G0378; J0153; J1642; J1815